=== PATIENT | female | born 1985 | race Caucasian/White ===

== ENCOUNTER 2016-11-21 20:21 | Emergency (ER) | payer SELFPAY ==
[2016-11-21 20:27] VITALS: BP 142/64; PULSE 100; RESP 16; TEMP 98; O2SAT 100
[2016-11-21] MEDS ORDERED: Albuterol-Ipratrop 3 mg / 0.5 (3 ml) UD INH STA (20:45)
--- NOTE | 2016-11-21 20:49 | ED PDOC ---
HPI: CCC, URI, Sore Throat Chief Complaint (Provider): cough with associated chest tigthness and pain History Per: Patient History/Exam Limitations: no limitations Have you had recent travel within the past 21 days to any of the following countries: [place], [place], [place] or [place]?: No Onset/Duration Of Symptoms: Gradual, Worse Since (Symptoms started over a month ago) Current Symptoms Are (Timing): Still Present Sick Contacts (Context): None Associated Symptoms: Cough. denies: Fever, Chills, Sputum, Sinus Drainage, Nasal Congestion, Nausea Pain Scale Rating Of: 8 Additional History Per: Patient <Anahi Xiao - Last Filed: 11/21/16 23:41> <Graeme Prince - Last Filed: 11/22/16 02:25> Time Seen by Provider: 11/21/16 20:38 Chief Complaint (Nursing): Chest Pain Additional Complaint(s): 31 y/o female denies any significant medical history presenting to ED with chief complaint of dry cough that started over a month ago with associated chest "pain", states she came to the ED today because the chest pain made her feel as though she cannot breath. describes pain as tightness when she is coughing. Denies any sputum production with cough; denies any fevers, chills, nausea, vomiting or sick contacts. States laying down flat or going into cold air makes the cough worse. Denies any dizziness, abdominal pain. States she has not seen a doctor in over 8yrs because she has been healthy up until this cough started. Does not smoke and nobody smokes around her. (Anahi Xiao) Supervising Attending Note - Attestation: I have personally seen and examined this patient.: Yes I have fully participated in the care of the patient.: Yes I have reviewed all pertinent clinical information, including history, physical exam and plan: Yes <Graeme Prince - Last Filed: 11/22/16 02:25> Past Medical History - Family History Family History: States: No Known Family Hx <Anahi Xiao - Last Filed: 11/21/16 23:41> <Graeme Prince - Last Filed: 11/22/16 02:25> Vital Signs: Last Vital Signs Temp 98.0 F 11/21/16 20:25 Pulse 100 H 11/21/16 20:25 Resp 16 11/21/16 20:25 BP 142/64 11/21/16 20:25 Pulse Ox 100 11/21/16 23:43 - Home Medications Home Medications: Ambulatory Orders Medication Instructions Recorded Albuterol HFA [Ventolin HFA 90 2 puff IH [id number] #1 puff 11/21/16 mcg/actuation (8 g)] predniSONE [predniSONE Tab] 20 mg PO DAILY 2 Days 11/21/16 - Allergies Allergies/Adverse Reactions: Allergies Allergy/AdvReac Type Severity Reaction Status Date / Time No Known Allergies Allergy Verified 11/21/16 20:25 Review of Systems ROS Statement: Except As Marked, All Systems Reviewed And Found Negative <Anahi Xiao - Last Filed: 11/21/16 23:41> Physical Exam - Reviewed Vital Signs Reviewed: Yes - Physical Exam Appears: Positive for: Non-toxic, No Acute Distress Head Exam: Positive for: ATRAUMATIC Skin: Positive for: Normal Color Eye Exam: Positive for: EOMI, PERRL Cardiovascular/Chest: Positive for: Regular Rate, Rhythm. Negative for: Chest Non Tender Respiratory: Positive for: Rales, Wheezing Gastrointestinal/Abdominal: Positive for: Normal Exam, Bowel Sounds, Soft. 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 <Anahi Xiao - Last Filed: 11/21/16 23:41> - ECG ECG: Positive for: Interpreted By Ut ECG Rhythm: Positive for: Normal QRS, Sinus Rhythm O2 Sat by Pulse Oximetry: 100 <Anahi Xiao - Last Filed: 11/21/16 23:41> Medical Decision Making <Anahi Xiao - Last Filed: 11/21/16 23:41> <Graeme Prinec - Last Filed: 11/22/16 02:25> Medical Decision Making: Given Pt's HPI and PE, will give nebulizer treatment and obtain an Xray Pt lungs significantly improved after 1 nebulizer treatment, pt will be discharge home with a course of PO steroids and albuterol inhaler (Anahi Xiao) Disposition - Patient ED Disposition Is Patient to be Admitted: No - Disposition Disposition: Routine/Home Disposition Time: 22:50 <Anahi Xiao - Last Filed: 11/21/16 23:41> <Graeme Prince - Last Filed: 11/22/16 02:25> - Clinical Impression Clinical Impression: Bronchospasm - Disposition Referrals: [facility] [Outside] Condition: IMPROVED Prescriptions: Albuterol HFA [Ventolin HFA 90 mcg/actuation (8 g)] 2 puff IH [id number] #1 puff predniSONE [predniSONE Tab] 20 mg PO DAILY 2 Days Instructions: Bronchospasm (ED) Forms: [employer] (Macedonian)
[2016-11-21] MEDS ORDERED: Albuterol-Ipratrop 3 mg / 0.5 (3 ml) UD ONE (20:56)
--- NOTE | 2016-11-22 09:13 | RAD ---
HISTORY: cough x 1 month COMPARISON: No prior. TECHNIQUE: Chest PA and lateral FINDINGS: LUNGS: No evidence of focal infiltrate or consolidation in the lungs. Prominent perihilar lung markings. PLEURA: No significant pleural effusion identified. No pneumothorax apparent. CARDIOVASCULAR: Normal. OSSEOUS STRUCTURES: No significant abnormalities. VISUALIZED UPPER ABDOMEN: Normal. OTHER FINDINGS: None. IMPRESSION: No radiographic evidence of pneumonia.
== END 2016-11-21 22:25 | disposition home or self-care (01) ==
LOC: H.ER 20:21
DX: J98.01 Acute bronchospasm (principal)